=== PATIENT | male | born 1955 | race Two or more races ===

== ENCOUNTER 2016-05-15 02:56 | Inpatient (IN) | payer OTHER ==
[~2016-05-15] VITALS: Ht 165.1 cm; Wt 90.0 kg
[2016-05-15 05:00] VITALS: BP 151/89
[2016-05-15] MEDS ORDERED: KETOROLAC TROMETHAMINE INJ 30 MG/ML VIAL IM PRN (06:00)
[2016-05-15 07:25] LABS: BASOPHILS % (AUTO) 0.6 % (0.0-2.0); DIFF TOTAL % 100 %; EOSINOPHILS # (AUTO) 0.1 /CMM (0.0-0.7); EOSINOPHILS % (AUTO) 1.2 % (0.0-6.0); HEMATOCRIT 50 % (39-51); HEMOGLOBIN 16.3 g/dL (13.5-17.5); LYMPHOCYTES % (AUTO) 14.8 % (20.0-44.0); MEAN CORPUSCULAR HEMOGLOBIN 31 PG (26.0-33.0); MEAN CORPUSCULAR HGB CONC 33 g/dl (31.0-36.0); MEAN CORPUSCULAR VOLUME 93 fL (80-96); MONOCYTES # (AUTO) 0.4 /CMM (0.1-1.30); MONOCYTES % (AUTO) 6.2 % (2.0-12.0); NEUTROPHILS # (AUTO) 5.1 /CMM (1.8-8.9); NEUTROPHILS % (AUTO) 77.2 % (43.0-81.0); PLATELET COUNT (AUTO) 160 /CMM (150-450); RED BLOOD CELL COUNT(AUTO) 5.31 MIL/uL (4.5-6.0); WHITE BLOOD COUNT (AUTO) 6.6 K/uL (4.3-11.0)
[2016-05-15 08:00] VITALS: BP_SYST 144; BP_DIAS 81; BP_DIAS 87
[2016-05-15] MEDS ORDERED: ASPI81TA2 PO (08:23)
[2016-05-15] MEDS ORDERED: METOPROLOL TARTRATE 50 MG TABLET PO SCH (09:00)
[2016-05-15] MEDS: RIVAROXABAN 10 MG TABLET PO SCH (09:25)
[2016-05-15 12:00] VITALS: BP 130/73
[2016-05-15 16:00] VITALS: BP 140/74
[2016-05-15 16:19] LABS: ALBUMIN 3.6 g/dL (3.4-5.0); CALCIUM, SERUM 8.6 mg/dL (8.5-10.1); POTASSIUM 4.3 mmol/L (3.5-5.1); TOTAL PROTEIN, SERUM 7.3 g/dL (6.4-8.2)
[2016-05-15 16:27] LABS: TROPONIN I 0.05 ng/mL (0.00-0.056)
[2016-05-15] MEDS: ASPIRIN 81 MG TAB.CHEW PO SCH (16:35)
[2016-05-15 19:43] VITALS: BP 131/74
[2016-05-15 20:00] VITALS: BP 131/74
[2016-05-15] MEDS ORDERED: CARVEDILOL 6.25 MG TABLET PO SCH (21:00)
[2016-05-15] MEDS: ATORVASTATIN 40 MG TABLET PO SCH (21:30)
[2016-05-16] VITALS: BP 151/85
[2016-05-16 04:00] VITALS: BP 128/96
[2016-05-16 04:19] VITALS: BP 128/96
[2016-05-16 07:58] LABS: CREATINE KINASE, TOTAL 126 U/L (39-308)
[2016-05-16 08:00] VITALS: BP 130/87
[2016-05-16] MEDS: ASPIRIN 81 MG TAB.CHEW PO SCH (08:51)
[2016-05-16] MEDS: CARVEDILOL 6.25 MG TABLET PO SCH ×2 (08:52→21:06)
[2016-05-16] MEDS ORDERED: REGADENOSON 0.4 MG/5 ML DISP.SYRIN IVP ONE (09:00)
[2016-05-16 09:56] LABS: KETONES,URINE NEGATIVE (NEGATIVE); LEUKOCYTE ESTERASE ,URINE NEGATIVE (NEGATIVE)
[2016-05-16 09:58] LABS: ADD UA MICROSCOPIC YES
[2016-05-16 10:00] LABS: ADD URINE CULTURE NO; RBC,URINE NONE SEEN /HPF (0-2); WBC,URINE 0-2 /HPF (0-3)
[2016-05-16] MEDS: LISINOPRIL (5MG) 5 MG TABLET PO SCH (10:21)
[2016-05-16 12:00] VITALS: BP 124/62
[2016-05-16] MEDS ORDERED: ACETAMINOPHEN 650 MG/20.3 ML UDC NG PRN (15:00)
[2016-05-16] MEDS: RIVAROXABAN 10 MG TABLET PO SCH (16:19)
[2016-05-16 20:00] VITALS: BP 106/73
[2016-05-16] MEDS: ATORVASTATIN 40 MG TABLET PO SCH (21:06)
[2016-05-17] VITALS: BP 118/77
[2016-05-17 08:00] VITALS: BP 129/67
[2016-05-17] MEDS: ASPIRIN 81 MG TAB.CHEW PO SCH (10:37)
[2016-05-17] MEDS: LISINOPRIL (5MG) 5 MG TABLET PO SCH (10:38)
[2016-05-17] MEDS: CARVEDILOL 6.25 MG TABLET PO SCH (10:39)
[2016-05-17 16:12] VITALS: BP 125/67
== END 2016-05-17 16:15 | disposition home or self-care (01) | DRG 201 ==
LOC: TELE 04:51
PROVIDERS: ADMIT Internal Medicine; ATTEND Internal Medicine
DX: I48.0 Paroxysmal atrial fibrillation (principal); I50.21 Acute systolic (congestive) heart failure; I42.9 Cardiomyopathy, unspecified; I11.0 Hypertensive heart disease with heart failure; F41.9 Anxiety disorder, unspecified; E66.9 Obesity, unspecified; G47.30 Sleep apnea, unspecified; E78.5 Hyperlipidemia, unspecified; F17.210 Nicotine dependence, cigarettes, uncomplicated; I25.10 Atherosclerotic heart disease of native coronary artery without angina pectoris; Z79.82 Long term (current) use of aspirin; Z79.899 Other long term (current) drug therapy
CPT/HCPCS: 36415; 80053-TC; 81000-TC; 82550-TC; 83880; 84443-TC; 84484-TC; 85025-TC; 87081-TC; 93307-TC; A9502; J2785; Z7610